=== PATIENT | male | born 1985 | race African-American/Black ===

== ENCOUNTER 2018-01-03 16:01 | Emergency (ER) | payer SELFPAY ==
[2018-01-03 17:27] VITALS: BP 120/97; PULSE 76; TEMP 98.3; BMI 25.8
[2018-01-03] MEDS ORDERED: NAPROXEN 500 MG TABLET (FP) PO ONE (18:02)
[2018-01-03] MEDS ORDERED: NAPROXEN 500 MG TABLET (FP) ONE (18:04)
--- NOTE | 2018-01-03 18:13 | PDOC ---
History of Present Illness - General Chief Complaint: Back Pain Stated Complaint: LOWER BACK PAIN Time Seen by Provider: 01/03/18 17:47 History Source: Patient Exam Limitations: No Limitations - History of Present Illness Initial Comments: 01/03/18 18:55 This is a 32-year-old male with history of kidney stones who presents to the emergency department with lower back pain status post twisting injury. Patient states was lifting heavy object when he twisted felt the pain in his lower back. States the pain gets worse with flexion and extension of the spine. Increased pain with twisting also. Patient rates pain 6 out of 10 describes as a sharp stabbing feeling. Patient denies any dysuria, hematuria, fevers, nausea , vomiting, abdominal pain, saddle anesthesia, incontinence of bladder or bowel. Past History - Past Medical History Allergies/Adverse Reactions: Allergies Allergy/AdvReac Type Severity Reaction Status Date / Time No Known Allergies Allergy Verified 01/03/18 17:25 Home Medications: Ambulatory Orders NK [No Known Home Medication] 01/03/18 COPD: No - Immunization History Immunization Up to Date: Yes - Suicide/Smoking/Psychosocial Hx Smoking History: Current every day smoker Number of Cigarettes Smoked Daily: 0 Cigars Per Day: 0 Information on smoking cessation initiated: No Hx Alcohol Use: No Drug/Substance Use Hx: No Substance Use Type: None Review of Systems - Review of Systems Able to Perform ROS?: Yes Is the patient limited Swazi proficient: No Constitutional: No: Symptoms Reported HEENTM: No: Symptoms Reported Respiratory: No: Symptoms reported Cardiac (ROS): No: Symptoms Reported ABD/GI: No: Symptoms Reported : No: Symptoms Reported Musculoskeletal: Yes: See HPI Integumentary: No: Symptoms Reported Neurological: No: Symptoms reported Endocrine: No: Symptoms Reported Hematologic/Lymphatic: No: Symptoms Reported *Physical Exam - Vital Signs Last Vital Signs Temp Pulse Resp BP Pulse Ox 98.3 F 76 18 120/97 100 01/03/18 17:26 01/03/18 17:26 01/03/18 17:26 01/03/18 17:26 01/03/18 17:26 - Physical Exam General Appearance: Yes: Appropriately Dressed. No: Apparent Distress HEENT: positive: Normal ENT Inspection Neck: positive: Trachea midline, Supple Respiratory/Chest: positive: Lungs Clear, Normal Breath Sounds. negative: Respiratory Distress, Accessory Muscle Use Cardiovascular: positive: Regular Rhythm, Regular Rate, S1, S2. negative: Murmur Gastrointestinal/Abdominal: positive: Normal Bowel Sounds, Soft. negative: Tender Musculoskeletal: positive: Normal Inspection. negative: CVA Tenderness, Muscle Spasm, Vertebral Tenderness Extremity: positive: Normal Inspection. negative: Normal Range of Motion Integumentary: positive: Normal Color, Dry, Warm Neurologic: positive: Alert, Normal Response, Motor Strength 5/5. negative: Numbness, Sensory Deficit Medical Decision Making - Medical Decision Making 01/03/18 19:03 A/P: 32-year-old male with sudden onset back pain starting last night. No vertebral tenderness noted to lower back. No CVA tenderness elicited. No palpable muscle spasms present. Full sensation to medial and lateral thighs. No foot drop present. Naprosyn 500 mg orally now Reassess *DC/Admit/Observation/Transfer Diagnosis at time of Disposition: Back pain Qualifiers: Back pain location: low back pain Chronicity: acute Back pain laterality: midline Sciatica presence: without sciatica Qualified Code(s): M54.5 - Low back pain - Discharge Dispostion Disposition: HOME Condition at time of disposition: Stable Admit: No - Referrals Referrals: Lopez Morillo MD [Primary Care Provider] - - Patient Instructions Additional Instructions: Take Naprosyn as needed for pain. Follow manufacturers instructions for appropriate dosage. Try not to walk or bear weight as much as possible for the next 3 days. Warm moist heat applied to your back may help alleviate pain. Return to emergency department for discoloration of the foot, numbness or tingling to the foot, worsening pain, or any other concerns. Thank you very much for choosing us to provide your emergent healthcare needs. - Post Discharge Activity
== END 2018-01-03 19:10 | disposition home or self-care (01) ==
LOC: JERFT 16:01
DX: M54.5 Low back pain (principal); X50.1XXA Overexertion from prolonged static or awkward postures, initial encounter; Y93.89 Activity, other specified; Y92.89 Other specified places as the place of occurrence of the external cause; Z87.442 Personal history of urinary calculi
CPT/HCPCS: 99281-25